=== PATIENT | female | born 1950 | race Hispanic/Latino ===

== ENCOUNTER 2023-03-01 11:10 | Outpatient (CLI) | payer MEDICARE, BC | END 2023-03-01 11:11 | disposition home or self-care (01) | LOC: CSHRAD 11:10 | PROVIDERS: ATTEND Family Medicine Sports Medicine | DX: M79.18 Myalgia, other site (principal); M46.1 Sacroiliitis, not elsewhere classified | CPT/HCPCS: 72202 ==